=== PATIENT | female | born 1995 | race African-American/Black ===

== ENCOUNTER 2020-04-06 05:41 | Emergency (ER) | payer OTHER ==
[~2020-04-06] VITALS: Ht 152.4 cm; Wt 54.4 kg
== END 2020-04-06 09:17 | disposition home or self-care (01) ==
LOC: ER 05:41
DX: F10.220 Alcohol dependence with intoxication, uncomplicated (principal); E86.0 Dehydration; K29.60 Other gastritis without bleeding; Z20.822 Contact with and (suspected) exposure to COVID-19